=== PATIENT | female | born 1965 | race Caucasian/White ===

== ENCOUNTER → 2019-02-03 | Outpatient (CLI) | payer OTHER | LOC: COL.RAD 09:45 | DX: M79.2 Neuralgia and neuritis, unspecified (principal) ==

== ENCOUNTER → 2019-02-22 | Outpatient (CLI) | payer OTHER | LOC: MHCPAIN 15:06 | DX: G89.29 Other chronic pain (principal); M79.2 Neuralgia and neuritis, unspecified | CPT/HCPCS: G0463 ==

== ENCOUNTER → 2020-04-01 | Outpatient (CLI) | payer OTHER ==
[~2020-04-01] MED LIST: CYMBALTA 60MG60 MG PO; LIPITOR 10MG10 MG PO; NORCO 325 MG-51 TAB PO; REQUIP2 MG PO; SYNTHROID0.088 MG/T PO
== END ==
LOC: ZCOL.LAB 15:52
DX: R19.7 Diarrhea, unspecified (principal); Z20.828 Contact with and (suspected) exposure to other viral communicable diseases

== ENCOUNTER → 2021-10-02 | Outpatient (CLI) | payer OTHER | LOC: MC.RAD 14:37 | DX: Z12.31 Encounter for screening mammogram for malignant neoplasm of breast (principal) ==